=== PATIENT | female | born 1980 | race Caucasian/White ===

== ENCOUNTER 2023-03-10 12:25 | Inpatient (IN) | payer BC, OTHER ==
[2023-03-10 12:35] VITALS: BMI 22.1
[2023-03-10] MEDS ORDERED: SODIUM CHLORIDE 0.9% 500 ML INFUS.BAG IV ONE ×2 (13:40→15:52)
[2023-03-10] MEDS ORDERED: ONDANSETRON 4 MG/2 ML VIAL IVPUSH ONE (14:14)
[2023-03-10] MEDS ORDERED: ONDANSETRON 4 MG/2 ML VIAL ONE (14:16)
[2023-03-10 15:20] LABS: CHLORIDE 97 mmol/L (98-107); POTASSIUM 5.7 mmol/L (3.5-5.1); SODIUM 131 mmol/L (136-145)
[2023-03-10 15:22] LABS: ANION GAP 11 MMOL/L (8-16); BLOOD UREA NITROGEN 49.2 mg/dL (7-18); CO2 23 mmol/L (21-32)
[2023-03-10 15:24] LABS: ALBUMIN 3.5 g/dl (3.4-5.0); GLUCOSE,RANDOM 100 mg/dL (74-106); MAGNESIUM 2.5 mg/dL (1.8-2.4)
[2023-03-10 15:26] LABS: BASO % 0.3 % (0-2.0); CREATININE 3.6 mg/dL (0.55-1.3); EOS % 0.1 % (0-4.5); HEMATOCRIT 38.9 % (32.4-45.2); HEMOGLOBIN 13.5 GM/dL (10.7-15.3); MCH 31.6 pg (25.7-33.7); MCHC 34.8 g/dl (32.0-36.0); MEAN CELL VOLUME 90.8 fl (80-96); MEAN PLT VOLUME 8.7 fl (7.5-11.1); MONO % 4.1 % (3.8-10.2); NEUT % 89.5 % (42.8-82.8); PHOSPHOROUS 6.9 mg/dL (2.5-4.9); PLATELET COUNT 325 10^3/uL (134-434); RBC 4.28 M/mm3 (3.60-5.2); RDW 13.5 % (11.6-15.6); WHITE BLOOD COUNT 13.2 K/mm3 (4.0-10.0)
[2023-03-10 15:28] LABS: ALK PHOS 71 U/L (45-117); BILIRUBIN,TOTAL 0.9 mg/dL (0.2-1); TOT PROT 6.8 g/dl (6.4-8.2)
[2023-03-10 15:53] LABS: CALCIUM 6.8 mg/dL (8.5-10.1); SGOT/AST 2794 U/L (15-37); SGPT/ALT 1809 U/L (13-61)
[2023-03-10] MEDS ORDERED: CALCIUM GLUCONATE 10% - 1,000 MG/10 ML VIAL IVPUSH ONE (16:08)
[2023-03-10] MEDS ORDERED: CALCIUM GLUCONATE 10% - 1,000 MG/10 ML VIAL ONE (16:43)
[2023-03-10] MEDS ORDERED: LACTATED RINGERS SOLUTION 1,000 ML IV SCH ×3 (17:45→22:59)
[2023-03-10] MEDS ORDERED: ONDANSETRON 4 MG/2 ML VIAL IVPUSH PRN (17:47)
[2023-03-10] MEDS ORDERED: THIAMINE HCL 200 MG/2 ML VIAL IVPB ONE (17:48)
[2023-03-10] MEDS ORDERED: THIAMINE HCL 200 MG/2 ML VIAL ONE (18:15)
[2023-03-10] MEDS ORDERED: DEXAMETHASONE SOD PHOSPHATE 4 MG/1 ML VIAL ONE (18:15)
[2023-03-10] MEDS: DEXAMETHASONE SOD PHOSPHATE 4 MG/1 ML VIAL IVPUSH SCH (18:57)
[2023-03-10 19:22] LABS: CREATININE 3.6 mg/dL (0.55-1.3)
[2023-03-10 20:32] LABS: INR 1.04 (0.83-1.09); PROTHROMBIN TIME (PATIENT) 12.1 SEC (9.7-13.0)
[2023-03-10 20:35] LABS: ACTIVATED PTT 27.1 SECONDS (25.2-36.5)
[2023-03-10 21:58] LABS: CHLORIDE 101 mmol/L (98-107); POTASSIUM 4.9 mmol/L (3.5-5.1); SODIUM 133 mmol/L (136-145)
[2023-03-10 22:00] LABS: ALBUMIN 3.4 g/dl (3.4-5.0); ANION GAP 8 MMOL/L (8-16); BLOOD UREA NITROGEN 49.9 mg/dL (7-18); CO2 24 mmol/L (21-32); GLUCOSE,RANDOM 101 mg/dL (74-106)
[2023-03-10 22:06] LABS: BILIRUBIN,TOTAL 0.7 mg/dL (0.2-1); TOT PROT 6.3 g/dl (6.4-8.2)
[2023-03-10 22:07] LABS: ALK PHOS 66 U/L (45-117)
[2023-03-10 22:32] LABS: CALCIUM 6.8 mg/dL (8.5-10.1); SGOT/AST 2877 U/L (15-37); SGPT/ALT 1617 U/L (13-61)
[2023-03-10] MEDS ORDERED: CALCIUM GLUCONATE 10% - 1,000 MG/10 ML VIAL IVPB ONE (23:30)
[2023-03-11 00:56] LABS: EPI CELLS >36 /uL (0-25.1); HYALINE CASTS 2 /uL (0-3.1); URINE APPEARANCE CLOUDY; URINE BACTERIA 1745 /uL (0-1359); URINE BILIRUBIN NEGATIVE (NEGATIVE); URINE COLOR YELLOW; URINE GLUCOSE (UA) 1+ (NEGATIVE); URINE KETONE NEGATIVE (NEGATIVE); URINE LEUK ESTERASE 1+ (NEGATIVE); URINE NITRITE NEGATIVE (NEGATIVE); URINE PROTEIN 2+ (NEGATIVE); URINE WBC 200 /uL (0-25.8)
[2023-03-11 00:58] LABS: OPIATES, URI NEGATIVE (NEGATIVE)
[2023-03-11 00:59] LABS: METHADONE, UR NEGATIVE (NEGATIVE); PHENCYCLIDINE,URINE NEGATIVE (NEGATIVE); URINE BARBITURATES NEGATIVE (NEGATIVE); URINE BENZODIAZEPINES NEGATIVE (NEGATIVE)
[2023-03-11 01:28] LABS: COCAINE, UR POSITIVE (NEGATIVE); URINE AMPHETAMINES POSITIVE (NEGATIVE)
[2023-03-11] MEDS: DEXAMETHASONE SOD PHOSPHATE 4 MG/1 ML VIAL IVPUSH SCH ×3 (01:29→18:12)
[2023-03-11 03:20] LABS: URINE RBC 276.5 /uL (0-23.9)
[2023-03-11 06:37] LABS: HEMATOCRIT 34.5 % (32.4-45.2); HEMOGLOBIN 12.1 GM/dL (10.7-15.3); MCH 31.8 pg (25.7-33.7); MCHC 35.1 g/dl (32.0-36.0); MEAN CELL VOLUME 90.5 fl (80-96); MEAN PLT VOLUME 8.7 fl (7.5-11.1); PLATELET COUNT 263 10^3/uL (134-434); RBC 3.81 M/mm3 (3.60-5.2); WHITE BLOOD COUNT 9.1 K/mm3 (4.0-10.0)
[2023-03-11 06:56] LABS: POTASSIUM 5.1 mmol/L (3.5-5.1)
[2023-03-11 06:59] LABS: ALBUMIN 3.1 g/dl (3.4-5.0); BLOOD UREA NITROGEN 56.1 mg/dL (7-18); CALCIUM 7.2 mg/dL (8.5-10.1); MAGNESIUM 2.2 mg/dL (1.8-2.4)
[2023-03-11 07:02] LABS: CREATININE 4.8 mg/dL (0.55-1.3); PHOSPHOROUS 6.4 mg/dL (2.5-4.9)
[2023-03-11 07:04] LABS: BILIRUBIN,TOTAL 0.7 mg/dL (0.2-1); TOT PROT 5.9 g/dl (6.4-8.2)
[2023-03-11 07:05] LABS: BILIRUBIN,DIRECT 0.2 mg/dL (0.0-0.2); CHOLESTEROL 149 mg/dL (50-200)
[2023-03-11 07:07] LABS: ALK PHOS 63 U/L (45-117); BILIRUBIN,TOTAL 0.6 mg/dL (0.2-1); HDL CHOLESTEROL 80 mg/dL (40-60); LDL CHOLESTEROL (ONLY SJRH) 56 mg/dL (5-100); TOT PROT 5.7 g/dl (6.4-8.2)
[2023-03-11 07:46] LABS: SGOT/AST 1689 U/L (15-37); SGPT/ALT 1352 U/L (13-61)
[2023-03-11] MEDS: CALCIUM ACETATE 667 MG CAPSULE (FP) PO SCH ×3 (08:08→18:12)
[2023-03-11 08:55] LABS: ANISOCYTOSIS 0; HELMET CELLS 0; HOWELL-JOLLY BODIES 0; MACROCYTOSIS 0; OVALOCYTE 0; ROULEAU 0; SICKELED CELLS 0; TARGET CELLS 0; TEAR DROP CELLS 0; TOXIC GRANULATION 0
[2023-03-11] MEDS ORDERED: SODIUM CHLORIDE 1,000 ML IV SCH (11:00)
[2023-03-11] MEDS: ENOXAPARIN NA (PORCINE) 40 MG/0.4 ML DISP.SYRIN SQ SCH (11:14)
[2023-03-11] MEDS: THIAMINE HCL 100 MG TABLET (FP) PO SCH (11:14)
[2023-03-11] MEDS: FOLIC ACID 1 MG TABLET (FP) PO SCH (11:14)
[2023-03-11 12:04] LABS: LDH > 1000 U/L (84-246)
[2023-03-11 15:19] VITALS: RESP 18
[2023-03-11] MEDS: SODIUM CHLORIDE 1,000 ML IV SCH ×2 (16:06→21:45)
[2023-03-12] MEDS: DEXAMETHASONE SOD PHOSPHATE 4 MG/1 ML VIAL IVPUSH SCH ×3 (01:33→17:13)
[2023-03-12] MEDS: SODIUM CHLORIDE 1,000 ML IV SCH ×5 (02:37→21:58)
[2023-03-12 09:10] LABS: PROTHROMBIN TIME (PATIENT) 11.6 SEC (9.7-13.0)
[2023-03-12 09:36] LABS: CHLORIDE 103 mmol/L (98-107); POTASSIUM 4.9 mmol/L (3.5-5.1); SODIUM 132 mmol/L (136-145)
[2023-03-12] MEDS: THIAMINE HCL 100 MG TABLET (FP) PO SCH (09:38)
[2023-03-12 09:41] LABS: ANION GAP 9 MMOL/L (8-16); CO2 20 mmol/L (21-32)
[2023-03-12] MEDS: CALCIUM ACETATE 667 MG CAPSULE (FP) PO SCH ×3 (09:42→17:14)
[2023-03-12] MEDS: FOLIC ACID 1 MG TABLET (FP) PO SCH (09:42)
[2023-03-12 09:43] LABS: BLOOD UREA NITROGEN 75.4 mg/dL (7-18); GLUCOSE,RANDOM 170 mg/dL (74-106)
[2023-03-12] MEDS: ENOXAPARIN NA (PORCINE) 40 MG/0.4 ML DISP.SYRIN SQ SCH (09:43)
[2023-03-12 09:44] LABS: SGOT/AST 790 U/L (15-37); SGPT/ALT 915 U/L (13-61)
[2023-03-12 09:45] LABS: CREATININE 6.7 mg/dL (0.55-1.3)
[2023-03-12 09:46] LABS: BILIRUBIN,DIRECT 0.2 mg/dL (0.0-0.2); PHOSPHOROUS 4.9 mg/dL (2.5-4.9); TOT PROT 5.4 g/dl (6.4-8.2)
[2023-03-12 09:47] LABS: BILIRUBIN,TOTAL 0.6 mg/dL (0.2-1)
[2023-03-12 09:49] LABS: ALK PHOS 65 U/L (45-117)
[2023-03-12 10:29] LABS: LDH 1613 U/L (84-246)
[2023-03-12] MEDS ORDERED: MELATONIN 5 MG TABLETS PO PRN (21:46)
[2023-03-13] MEDS: DEXAMETHASONE SOD PHOSPHATE 4 MG/1 ML VIAL IVPUSH SCH ×3 (01:54→17:45)
[2023-03-13] MEDS: CALCIUM ACETATE 667 MG CAPSULE (FP) PO SCH ×3 (08:08→17:45)
[2023-03-13 08:10] LABS: HEMATOCRIT 29.3 % (32.4-45.2); HEMOGLOBIN 10.6 GM/dL (10.7-15.3); MCH 32.4 pg (25.7-33.7); MCHC 36.1 g/dl (32.0-36.0); MEAN CELL VOLUME 89.8 fl (80-96); MEAN PLT VOLUME 8.4 fl (7.5-11.1); PLATELET COUNT 226 10^3/uL (134-434); RBC 3.26 M/mm3 (3.60-5.2); RDW 13.4 % (11.6-15.6)
[2023-03-13 08:13] LABS: INR 0.99 (0.83-1.09); PROTHROMBIN TIME (PATIENT) 11.5 SEC (9.7-13.0)
[2023-03-13] MEDS: SODIUM CHLORIDE 1,000 ML IV SCH (08:14)
[2023-03-13 08:27] LABS: CHLORIDE 109 mmol/L (98-107); POTASSIUM 5.1 mmol/L (3.5-5.1); SODIUM 134 mmol/L (136-145)
[2023-03-13 09:01] LABS: ALBUMIN 2.5 g/dl (3.4-5.0); ANION GAP 9 MMOL/L (8-16); CALCIUM 7.2 mg/dL (8.5-10.1); CO2 16 mmol/L (21-32); GLUCOSE,RANDOM 154 mg/dL (74-106)
[2023-03-13 09:03] LABS: ALBUMIN 2.5 g/dl (3.4-5.0)
[2023-03-13 09:04] LABS: BILIRUBIN,DIRECT 0.1 mg/dL (0.0-0.2); SGOT/AST 321 U/L (15-37); SGPT/ALT 577 U/L (13-61)
[2023-03-13 09:05] LABS: BILIRUBIN,TOTAL 0.4 mg/dL (0.2-1); TOT PROT 4.7 g/dl (6.4-8.2)
[2023-03-13 09:06] LABS: ALK PHOS 53 U/L (45-117)
[2023-03-13 09:07] LABS: BILIRUBIN,TOTAL 0.5 mg/dL (0.2-1); TOT PROT 4.8 g/dl (6.4-8.2)
[2023-03-13 09:08] LABS: BLOOD UREA NITROGEN 81.7 mg/dL (7-18)
[2023-03-13 09:11] LABS: CREATININE 7.9 mg/dL (0.55-1.3)
[2023-03-13 10:06] LABS: ANISOCYTOSIS 1+; MACROCYTOSIS 0
[2023-03-13] MEDS: ENOXAPARIN NA (PORCINE) 40 MG/0.4 ML DISP.SYRIN SQ SCH (12:06)
[2023-03-13] MEDS: THIAMINE HCL 100 MG TABLET (FP) PO SCH (12:07)
[2023-03-13] MEDS: FOLIC ACID 1 MG TABLET (FP) PO SCH (12:07)
[2023-03-13] MEDS ORDERED: LACTATED RINGERS SOLUTION 1,000 ML/1,000 ML INFUS.BAG IV SCH (14:30)
[2023-03-13 18:45] VITALS: BP 131/80; PULSE 59; TEMP 98.2
== END 2023-03-13 21:13 | disposition left against medical advice (07) | DRG 558 ==
LOC: JER 12:25 → JERBED 17:02 → J5S 20:16
PROVIDERS: ADMIT Internal Medicine; ATTEND Internal Medicine
DX: M62.82 Rhabdomyolysis (principal); N17.9 Acute kidney failure, unspecified; N18.9 Chronic kidney disease, unspecified; F17.210 Nicotine dependence, cigarettes, uncomplicated; E83.51 Hypocalcemia; E83.39 Other disorders of phosphorus metabolism; R74.01 Elevation of levels of liver transaminase levels; F12.10 Cannabis abuse, uncomplicated
CPT/HCPCS: 0241U-QW; 36415; 70450-TC; 72125-TC; 72141-TC; 72170-TC-FY; 76700-TC; 80053; 80061; 80076; 80307; 81003; 82306; 82310; 82550; 82553; 82565; 82607; 82746; 82962; 83036; 83516; 83520; 83615; 83735; 83874; 83930; 83935; 83970; 84100; 84155; 84165; 84300; 84443; 84484; 85025; 85610; 85730; 86038; 86140; 86225; 86256; 86704; 86705; 86708; 86803; 87086; 87340; 87517; 93005; 93010; 97116-GP; 97161-GP; 99285-25